=== PATIENT | female | born 1990 | race African-American/Black ===

== ENCOUNTER 2017-02-17 01:48 | Emergency (ER) | payer OTHER ==
[~2017-02-17] VITALS: Ht 162.6 cm; Wt 61.2 kg
[~2017-02-17 01:48] MED LIST: PROMETHAZINE-C120 ML PO; ZPAK PO
[2017-02-17] MEDS ORDERED: KEFLEX500 MG PO (02:07)
[2017-02-17] MEDS ORDERED: CAMBIA50 MG PO (02:08)
[2017-02-17] MEDS ORDERED: BACTRIM DS TAB1 EACH PO (02:41)
[2017-02-17 02:54] VITALS: BP 94/54
== END 2017-02-17 02:55 | disposition home or self-care (01) ==
LOC: ER 01:48
DX: L05.01 Pilonidal cyst with abscess (principal)

== ENCOUNTER 2019-06-20 23:47 | Emergency (ER) | payer OTHER ==
[~2019-06-20] VITALS: Ht 162.6 cm; Wt 60.3 kg
[~2019-06-20 23:47] MED LIST changes: +BACTRIM DS TAB1 EACH PO; +CAMBIA50 MG PO; +KEFLEX500 MG PO
[2019-06-21 00:01] VITALS: BP 135/71
[2019-06-21] MEDS ORDERED: PRENATAL (00:14)
== END 2019-06-21 00:45 | disposition home or self-care (01) ==
LOC: ER 23:47
DX: O26.892 Other specified pregnancy related conditions, second trimester (principal); R10.9 Unspecified abdominal pain; Z3A.17 17 weeks gestation of pregnancy; W18.39XA Other fall on same level, initial encounter; Y92.89 Other specified places as the place of occurrence of the external cause; Y93.89 Activity, other specified; Y99.8 Other external cause status